=== PATIENT | male | born 1990 | race Hispanic/Latino ===

== ENCOUNTER 2020-12-28 11:13 | Emergency (ER) | payer OTHER ==
[~2020-12-28] VITALS: Ht 172.7 cm; Wt 78.0 kg
[2020-12-28] MEDS ORDERED: IBUPROFEN 600 MG TAB PO STA (11:52)
[2020-12-28] MEDS ORDERED: IBUPROFEN400 MG PO (11:55)
[2020-12-28] MEDS ORDERED: CYCLOBENZAPRINE10 MG PO (11:56)
== END 2020-12-28 12:07 | disposition home or self-care (01) ==
LOC: FSED 11:37
DX: S13.4XXA Sprain of ligaments of cervical spine, initial encounter (principal); V43.51XA Car driver injured in collision with sport utility vehicle in traffic accident, initial encounter; Y92.488 Other paved roadways as the place of occurrence of the external cause
CPT/HCPCS: 99282